=== PATIENT | male | born 1985 | race Caucasian/White ===

== ENCOUNTER 2018-11-06 07:37 | Emergency (ER) | payer SELFPAY ==
[2018-11-06 07:58] VITALS: BP 121/73; PULSE 83; RESP 16; TEMP 36.8; O2SAT 100; BMI 22.4
--- NOTE | 2018-11-06 08:18 | ED.ABDPAIN ---
HPI - Abdominal Pain General Chief Complaint: Abdominal Pain Stated Complaint: SEVERE ABDOMINAL PAIN Time Seen by Provider: 11/06/18 07:43 Source: patient Mode of arrival: ambulatory Limitations: no limitations History of Present Illness HPI narrative: Patient is a 33-year-old male otherwise healthy here for evaluation of epigastric or right upper quadrant pain. He stated that his symptoms started about 0400 hr this morning. He stated that it woke him from sleep. Does feel somewhat better from the onset of the symptoms. No urinary symptoms or bowel symptoms. The nausea has improved. He did take some Aleve prior to arrival. No prior history of gallbladder disease. No prior surgeries. Related Data Previous Rx's Medication Instructions Recorded hydrocodone-acetaminophen [Superior] 1 tab PO Q4-6H PRN #10 tab 11/06/18 levofloxacin [Levaquin] 750 mg PO DAILY 10 Days #10 tab 11/06/18 metronidazole [Flagyl] 500 mg PO TID 10 Days #30 tab 11/06/18 ondansetron 4 mg PO Q6-8H PRN #10 tab 11/06/18 Allergies Allergy/AdvReac Type Severity Reaction Status Date / Time No Known Drug Allergies Allergy Verified 11/06/18 08:02 Review of Systems Constitutional Denies fever(s), Denies frequent falls and Denies headache(s) ENT Ears, Nose, Mouth, and Throat: Denies headache(s) Cardiovascular Denies chest pain and Denies dyspnea Respiratory Denies cough and Denies dyspnea Gastrointestinal Gastrointestinal: Reports abdominal pain, Denies change in stool character, Denies constipation, Reports nausea and Denies vomiting Genitourinary Denies hematuria and Denies dysuria Musculoskeletal Denies myalgias and Denies arthralgias Integumentary/Breasts Denies lesions and Denies rash Neurologic Denies behavioral changes, Denies frequent falls and Denies headache(s) Psychiatric Denies behavioral changes Hematologic/Lymphatic Comments: Not on blood thinners PFSH Medical History Healthy adult (Acute) Surgical History No history of previous surgery (Acute) Social History marital status: lives independently: Yes Social History marital status: lives independently: Yes Exam Initial Vital Signs Initial Vital Signs: Vital Signs Temperature 98.3 F 11/06/18 07:58 Pulse Rate 83 11/06/18 07:58 Respiratory Rate 16 11/06/18 07:58 Blood Pressure 121/73 11/06/18 07:58 Pulse Oximetry 100 11/06/18 07:58 Const General: cooperative, comfortable, well developed, well groomed and No acute distress Orientation: alert, awake and oriented x3 HENMT Head: normal to inspection Resp Effort & Inspection: normal respiratory effort Auscultation: clear to auscultation bilaterally Cardio Rate: regular rate Rhythm: regular rhythm GI Inspection: non-distended Palpation: soft, No firm, No guarding and tender (Right upper quadrant. No Aviles sign.) Back/Spine/Pelvis Back: No CVA tenderness Skin Lesions: no lesions Rashes: no rashes Neuro General: alert, awake and oriented x3 Extrem General: normal to inspection and capillary refill normal Psych Appearance: grossly normal and well kempt Course Orders Ordered: ED Orders 11/06/18 08:23 US abdomen complete Stat 11/06/18 08:25 Complete Blood Count AUTO DIFF Stat Comprehensive Metabolic Panel Stat Lipase Stat 11/06/18 09:20 Urinalysis and Microscopic Stat Discontinued Medications Al Hydrox/Mg Hydrox/Simethicone 20 ml/ Lidocaine HCl 15 ml 0 ml PO NOW ONE Stop: 11/06/18 08:24 Last Admin: 11/06/18 09:25 Dose: 35 ml Vital Signs - 8 hr 11/06/18 07:58 11/06/18 09:01 11/06/18 10:15 Temperature 98.3 F Pulse Rate 83 61 68 Respiratory Rate 16 16 16 Blood Pressure 121/73 Blood Pressure [Left Arm] 111/66 107/62 Pulse Oximetry 100 99 99 MDM - Abdominal Pain Lab Data Attestation: I reviewed the patient's lab results. Result diagrams: 11/06/18 08:25 11/06/18 08:25 Lab Results 11/06/18 11/06/18 11/06/18 Range/Units 08:25 08:25 09:20 WBC 9.9 (4.5-11.0) X10^3/uL RBC 4.87 (4.5-5.9) X10^6/uL Hgb 14.5 (13.5-17.5) g/dL Hct 43.0 (41-53) % MCV 88.2 (80-100) fL MCH 29.8 (26-34) PG MCHC 33.8 (30-36) % RDW 12.8 (11.6-14.8) % Plt Count 224 (150-400) X10^3/uL Neut % (Auto) 81.8 H (50-75) % Lymph % (Auto) 13.6 L (25-40) % Marshall % (Auto) 3.9 (3-14) % Eos % (Auto) 0.4 L (2-4) % Baso % (Auto) 0.3 (0-2) % Neut # (Auto) 8100 H (2424-4495) /uL Lymph # (Auto) 1300 (8030-0451) /uL Marshall # (Auto) 400 (0-900) /uL Eos # (Auto) 0 (0-450) /uL Baso # (Auto) 0 (0-100) /uL Sodium 139 (137-145) mmol/L Potassium 3.3 L (3.4-5.1) mmol/L Chloride 102 (98-107) mmol/L Carbon Dioxide 26 (22-32) mmol/L BUN 20 (9-20) mg/dL Creatinine 0.70 (0.66-1.25) mg/dL Estimated GFR > 60.0 (>60) mL/min BUN/Creatinine Ratio 28.6 H (6-22) Glucose 111 H (70-100) mg/dL Calcium 8.8 (8.4-10.2) mg/dL Total Bilirubin 0.3 (0.2-1.3) mg/dL AST 23 (17-59) IU/L ALT 29 (21-72) IU/L Alkaline Phosphatase 76 (38-126) U/L Total Protein 6.7 (6.3-8.2) g/dL Albumin 4.2 (3.5-5.0) g/dL Globulin 2.5 (1.7-4.1) g/dL Albumin/Globulin Ratio 1.7 (1.0-2.8) Lipase 100 (23-300) U/L Urine Color Yellow Urine Appearance Sl cloudy Urine pH 8.0 (4.5-8.0) Ur Specific [place] 1.020 (1.000-1.035) Urine Protein Negative (Negative) Urine Glucose (UA) Negative (Negative) g/dL Urine Ketones Negative (NEGATIVE) Urine Occult Blood Negative (Negative) Urine Nitrate Negative (Negative) Urine Bilirubin Negative (NEGATIVE) Urine Urobilinogen 0.2 (0.2) E.U./dL Ur Leukocyte Esterase Negative (NEGATIVE) Urine RBC None seen (0-5/HPF) Urine WBC None seen (0-5/HPF) Amorphous Sediment 1+ Urine Bacteria None seen (None) Ur Culture Indicated? Cult not indicated Imaging Data US - abdomen: Radiologist's impression: [address] [address] Ultrasound Report Signed Patient: Evangelist Giles JMR#: [id number] : 1985Acct:[id number] Age/Sex: 33 / MDate of Service: 11/06/18 Loc: ED Accession Number: [id number] Procedure: US abdomen complete Ordering Provider: Tobi Fields D.O. PROCEDURE: US ABDOMEN COMPLETE INDICATIONS: RIGHT UPPER QUADRANT PAIN TECHNIQUE: Real-time scanning was performed of the abdominal and retroperitoneal organs, with image documentation. COMPARISON: None. FINDINGS: Liver: Liver is normal in size and homogeneous in echotexture. Gallbladder: The gallbladder is normal in size. There is a 2 cm gallstone identified within the region of the neck of the gallbladder, which is nonmobile. Areas of pleural bladder wall thickening may be present. There also appears to be minimal pericholecystic fluid. The patient did exhibit a positive sonographic Aviles sign. Biliary ducts: No intrahepatic biliary dilatation is present. The common bile duct was not seen. Pancreas: Visualized portions of the pancreas are sonographically normal. Spleen: Spleen is mildly enlarged at 13.6 cm in length. No focal splenic lesion is evident. Kidneys: Kidneys are normal in size and echotexture. Right kidney measures 10.1 cm long; left kidney measures 10.9 cm long. No hydronephrosis or nephrolithiasis. No solid masses. Aorta: Visualized aorta is normal in caliber at less than 3 cm. Iliacs: Proximal common iliac arteries are normal in caliber at less than 2.5 cm. IVC: Intrahepatic inferior vena cava is patent. Miscellaneous: No free abdominal fluid. IMPRESSION: 1. Non-mobile gallstone within the neck of the gallbladder with areas of gallbladder wall thickening and minimal pericholecystic fluid. Please correlate clinically for possible early acute cholecystitis. 2. Nonspecific enlargement of the spleen. Dictated by: Abe Mcpherson M.D. on 11/06/2018 at 8:24 MDM Narrative Medical decision making narrative: Patient is nontoxic appearing. His relatively benign abdominal exam. Normal LFTs and lipase and white blood cell count. He is also afebrile. Right upper quadrant ultrasound is concerning for cholelithiasis. Could also be potentially early cholecystitis. Discussed the case with Dr. Hein with General surgery who stated that the patient could be sent home with antibiotics and follow up in the clinic tomorrow for an outpatient surgery. I did give the patient antibiotics and also the appointment time for surgery clinic visit tomorrow. He was also given return precautions. He expressed understanding and agreement with plan. Discharge Plan Departure Patient Disposition: Home Clinical Impression: Cholelithiasis Qualifiers: Cholelithiasis location: gallbladder Cholecystitis presence: without cholecystitis Biliary obstruction: without biliary obstruction Qualified Code(s): K80.20 - Calculus of gallbladder without cholecystitis without obstruction Discharge Date/Time: 11/06/18 10:15 Interventions: ED Discharge Assessment Last Done: 11/06/18 10:43 Instructions: DI for Gallstones Activity Restrictions/Additional Instructions: You have an appointment tomorrow at 0945 in the morning at the [facility] office with Dr. Hein. You can contact them at [phone]. Take the medication as directed. Return to the emergency department for any new or worsening symptoms Prescriptions: New hydrocodone-acetaminophen [Superior] 5-325 mg tablet 1 tab PO Q4-6H PRN (Reason: pain) Qty: 10 RF: 0 metronidazole [Flagyl] 500 mg tablet 500 mg PO TID 10 Days Qty: 30 RF: 0 levofloxacin [Levaquin] 750 mg tablet 750 mg PO DAILY 10 Days Qty: 10 RF: 0 ondansetron 4 mg tablet,disintegrating 4 mg PO Q6-8H PRN (Reason: nausea and vomiting) Qty: 10 RF: 0 Stand Alone Forms: Work Release Note
--- NOTE | 2018-11-06 08:23 | DI.US.S_ITS ---
PROCEDURE: US ABDOMEN COMPLETE INDICATIONS: RIGHT UPPER QUADRANT PAIN TECHNIQUE: Real-time scanning was performed of the abdominal and retroperitoneal organs, with image documentation. COMPARISON: None. FINDINGS: Liver: Liver is normal in size and homogeneous in echotexture. Gallbladder: The gallbladder is normal in size. There is a 2 cm gallstone identified within the region of the neck of the gallbladder, which is nonmobile. Areas of pleural bladder wall thickening may be present. There also appears to be minimal pericholecystic fluid. The patient did exhibit a positive sonographic Aviles sign. Biliary ducts: No intrahepatic biliary dilatation is present. The common bile duct was not seen. Pancreas: Visualized portions of the pancreas are sonographically normal. Spleen: Spleen is mildly enlarged at 13.6 cm in length. No focal splenic lesion is evident. Kidneys: Kidneys are normal in size and echotexture. Right kidney measures 10.1 cm long; left kidney measures 10.9 cm long. No hydronephrosis or nephrolithiasis. No solid masses. Aorta: Visualized aorta is normal in caliber at less than 3 cm. Iliacs: Proximal common iliac arteries are normal in caliber at less than 2.5 cm. IVC: Intrahepatic inferior vena cava is patent. Miscellaneous: No free abdominal fluid. IMPRESSION: 1. Non-mobile gallstone within the neck of the gallbladder with areas of gallbladder wall thickening and minimal pericholecystic fluid. Please correlate clinically for possible early acute cholecystitis. 2. Nonspecific enlargement of the spleen. Dictated by: Abe Mcpherson M.D. on 11/06/2018 at 8:24 Approved by: Abe Mcpherson M.D. on 11/06/2018 at 8:26
[2018-11-06 08:40] LABS: Add Manual Diff / Slide Review NO; Basophils Absolute Auto 0 /uL (0-100); Basophils Percent Auto 0.3 % (0-2); Eosinophils Absolute Auto 0 /uL (0-450); Eosinophils Percent Auto 0.4 % (2-4); Hemoglobin 14.5 g/dL (13.5-17.5); Lymphocytes Absolute Auto 1300 /uL (1100-4500); Lymphocytes Percent Auto 13.6 % (25-40); Mean Corpuscular HGB Conc 33.8 % (30-36); Mean Corpuscular Hemoglobin 29.8 PG (26-34); Mean Corpuscular Volume 88.2 fL (80-100); Monocytes Absolute Auto 400 /uL (0-900); Monocytes Percent Auto 3.9 % (3-14); Neutrophils Absolute Auto 8100 /uL (1500-7000); Neutrophils Percent Auto 81.8 % (50-75); Platelet Count 224 X10^3/uL (150-400); Red Blood Cell Count 4.87 X10^6/uL (4.5-5.9); Red Cell Distribution Width 12.8 % (11.6-14.8); White Blood Cell Count 9.9 X10^3/uL (4.5-11.0)
[2018-11-06 08:43] LABS: Alanine Aminotransferase 29 IU/L (21-72); Albumin 4.2 g/dL (3.5-5.0); Albumin Globulin Ratio 1.7 (1.0-2.8); Alkaline Phosphatase 76 U/L (38-126); Aspartate Aminotransferase 23 IU/L (17-59); BUN Creatinine Ratio 28.6 (6-22); Bilirubin Total 0.3 mg/dL (0.2-1.3); Blood Urea Nitrogen 20 mg/dL (9-20); Calcium 8.8 mg/dL (8.4-10.2); Carbon Dioxide 26 mmol/L (22-32); Chloride 102 mmol/L (98-107); Estimated Glomerular Filt Rate > 60.0 mL/min (>60); Globulin 2.5 g/dL (1.7-4.1); Glucose 111 mg/dL (70-100); HEMOLYSIS < 15 (0-50); Lipase 100 U/L (23-300); Potassium 3.3 mmol/L (3.4-5.1); Sodium 139 mmol/L (137-145); Total Protein 6.7 g/dL (6.3-8.2)
[2018-11-06 09:01] VITALS: BP 111/66; PULSE 61; RESP 16; O2SAT 99
[2018-11-06] MEDS: MAG HYDROX/ALUMINUM/SIMETH SUS 20 ML, LIDOCAINE VISCOUS 2% 15 ML PO (09:25)
[2018-11-06 09:33] LABS: Bacteria Urine None Seen; RBC Urine None Seen (0-5/HPF); WBC Urine None Seen (0-5/HPF)
[2018-11-06 09:34] LABS: Appearance Urine UA SL CLOUDY; Bilirubin Urine UA NEGATIVE (NEGATIVE); Color Urine UA YELLOW; Glucose Urine UA NEGATIVE (Negative); Ketones Urine UA NEGATIVE (NEGATIVE); Leukocyte Esterase Urine UA NEGATIVE (NEGATIVE); Nitrite Urine UA NEGATIVE (Negative); Occult Blood Urine UA NEGATIVE (Negative); Protein Urine UA NEGATIVE (Negative); Urobilinogen Urine UA 0.2 E.U./dL (0.2)
[2018-11-06 09:52] LABS: Amorphous Sediment Urine 1+; Culture Indicated Urine Cult Not Indicated
[2018-11-06 10:15] VITALS: BP 107/62; PULSE 68; RESP 16; O2SAT 99
== END 2018-11-06 10:15 | disposition home or self-care (01) ==
PROVIDERS: Emergency Provider Emergency Medicine
DX: K80.20 Calculus of gallbladder without cholecystitis without obstruction (principal)
CPT/HCPCS: 36591; 76700; 80053; 81001; 83690; 85025; 99283; 99284

== ENCOUNTER 2018-11-09 13:58 | Day surgery (SDC) | payer SELFPAY ==
[2018-11-08 07:22] VITALS: BMI 22.8
[2018-11-09] VITALS (7 sets, daily range): BP systolic 102–119; BP diastolic 68–79; PULSE 58–74; RESP 10–16; TEMP 36.7–37.1; O2SAT 96–100; BMI 22.8
--- NOTE | 2018-11-09 | PATH_ITS ---
[facility] Accession Number: [id number] . 01 Material submitted: . GALLBLADDER AND CONTENTS . 02 Diagnosis: Gallbladder: Cholelithiasis with associated chronic cholecystitis. MRV/11/12/2018 . 02 Electronically signed: . Hao Domingo MD, Pathologist NPI- [id number] . 01 Gross description: . Received in formalin, labeled gallbladder + contents, is an intact gallbladder (length-7.3 cm, diameter-2.8 cm) with pink-purple smooth shiny serosa and a patent cystic duct. No lymph nodes are identified. The lumen contains dark green viscous bile and one green gritty oblong hard calculus (2.2 x 1.3 x 1.2 cm) with a clear crystalline cut surface. The mucosa is green, smooth and flat. The wall is up 0.3 cm thick. No nodules, masses or lesions are identified. Section code: (A1) cystic duct resection margin and two serial sections from the body; (A2) two longitudinal sections from the fundus. ([id number]) /MRV . 02 Pathologist provided ICD-10: K80.64 . 02 CPT . 087371 Performed at: 01 [facility] [address], [place], [place] [id number] MD Evangelist Avina MD Phone: [phone] Performed at: 02 [facility] [address] [place], [place] [id number] MD Raissa Overton MD Phone: [phone]
[2018-11-09] MEDS: LACTATED RINGERS 1,000 ML 42 ML IV (14:10)
--- NOTE | 2018-11-09 14:42 | PM.PREOP ---
Pre-operative Note Interval Note History & Physical reviewed/Exam performed by Physician: Yes Changes to H&P: No H&P completed within 30 days and has changed as indicated here:: Patient seen and examined in the preoperative area. His history and physical examination from 3 days ago has not changed and is on the chart. Proceed with laparoscopic cholecystectomy today as planned.
[2018-11-09] MEDS: CEFAZOLIN 2 GM/100 ML FROZ.PIGGY IV (14:48)
--- NOTE | 2018-11-09 15:16 | SUR.OPER ---
Supine on padded OR bed, head on pillow, safety belt at thigh, left arm padded and tucked at side. Right arm secured on padded arm board <90 degrees abduction. Legs uncrossed. . Tape over blanket to secure lower legs.
[2018-11-09] MEDS: LIDOCAINE 1% W/EPI INJ 20 ML INJ (15:24)
[2018-11-09] MEDS: BUPIVACAINE 0.25% (PF) VIAL 30 ML INJ (15:25)
[2018-11-09] MEDS: OXYCODONE IR 5 MG TABLET PO (16:34)
--- NOTE | 2018-11-09 16:42 | PM.OP.1 ---
Operative Date/Time/Diagnoses Date of procedure: 11/09/18 Time of procedure: 16:43 Pre-op diagnosis: Acute cholecystitis secondary to cholelithiasis Post-op diagnosis: same Procedure & Clinicians Procedure: Laparascopic cholecystectomy Same procedure as scheduled: Yes Surgeon: Amari eHin Click Yes if Unassisted: Yes Anesthesia Type: General Operative Notes Findings: 1. Cholelithiasis 2. Acutely edematous mildly inflamed gallbladder consistent with acute cholecystitis 3. Otherwise grossly normal small bowel, duodenum, liver, stomach, colon, and peritoneal surfaces within the limits of laparoscopic visualization Closure Type: primary Specimen(s): other (gallbladder) Prosthetic devices, grafts, tissues, transplants, or devices: none Estimated Blood Loss (mL): 15 Blood products transfused: none Procedure in detail: After obtaining informed consent patient was brought to the operating room placed supine on the table. After satisfactory induction of anesthesia the abdomen was prepped and draped in usual sterile fashion. SCOAP time out was performed per standard protocol. A 1 1 mixture 1% lidocaine with 100,000 epinephrine 0.5% plain Marcaine was injected in the skin and subcutaneous tissue at the inferior aspect of the umbilicus for postoperative analgesia. Vertical midline incision was created for distance of approximately 2 cm at the inferior aspect of the umbilicus with 11 scalpel blade. Blunt dissection revealed the rectus fascia which was divided in the midline with 11 scalpel blade, and the edges of the fascia were secured with Paulino clamps bilaterally then elevated into the operative field. Two individual interrupted 0 Vicryl sutures were used to secure the fascia superiorly and inferiorly. Under direct visualization the peritoneum was entered Tosha clamps and a blunt 12 mm Angulo trocar was inserted. Carbon dioxide pneumoperitoneum was created and the abdomen was visually explored with a 5 mm 30 degree laparoscope. Findings are as above. Patient was placed in reverse Trendelenburg position and 3 additional 5 mm trocars were placed in the abdomen after achieving local anesthesia. First trocar was placed in the epigastric region and 2 other trocars were placed in the right lateral abdomen. Fundus of the gallbladder secured with a ratcheted grasper and retracted medially over the liver edge toward the diaphragm. Infundibulum of the gallbladder was thereby identified and secured with a 2nd ratcheted grasper then retracted inferiorly and laterally. Meticulous dissection in the triangle of Calot was performed with the [place] dissector and the cystic duct as well as the cystic artery were identified and skeletonized overlying connective tissue. Critical view of the liver bed through the avascular window between the 2 structures was obtained. Three clips were placed proximally on each structure and 1 distally at the junction with the gallbladder then both structures were divided with laparoscopic scissors. Monopolar cautery was used to remove the gallbladder from the hepatic bed. Gallbladder was retrieved through the umbilical incision and sent for permanent section. Liver was irrigated with copious amounts of sterile saline solution and noted to be hemostatic. Previously placed clips were in good position without evidence of hemorrhage or bile leak. No evidence of bile leak from the liver bed. After verifying hemostasis the patient was returned to the supine position in the right upper quadrant was irrigated. Irrigant returned clear. Instruments and trocars removed under direct visualization and noted to be hemostatic. Carbon dioxide was evacuated. Fascia at the umbilical site was closed with the previously placed 0 Vicryl suture. Skin at all 4 incisions was then closed in a running subcuticular fashion with 4 0 Monocryl suture. Dermal adhesive was applied to the skin. Anesthesia was reversed and patient extubated in the operating room. He was taken recovery stable condition. Complications: none Condition: stable Disposition: PACU Plan for aftercare: 1. Discharge home
== END 2018-11-09 17:12 | disposition home or self-care (01) ==
PROVIDERS: Visit Provider Surgery
PROC: 0FT44ZZ Resection of Gallbladder, Percutaneous Endoscopic Approach (ICD-10-PCS; CPT 47562; principal; 2018-11-09 16:00)
DX: K80.00 Calculus of gallbladder with acute cholecystitis without obstruction (principal); F17.210 Nicotine dependence, cigarettes, uncomplicated
CPT/HCPCS: 47562; J0690; J1100; J1885; J2250; J2405; J2704; J3010